=== PATIENT | male | born 1930 | race Caucasian/White ===

== ENCOUNTER 2016-09-06 14:45 | Emergency (ER) | payer OTHER, MEDICARE ==
[~2016-09-06] VITALS: Ht 152.4 cm; Wt 49.0 kg
[~2016-09-06 14:45] MED LIST: AMOXICILLIN875 MG PO; AVODART0.5 MG PO; COREG3.125 MG PO; DUONEB 2.5-0.5 M3 ML AEROSOL; FINASTERIDE5 MG PO; INHALER PO; LEVAQUIN750 MG PO; METAMUCIL PACKE1 PKT PO; PANTOPRAZOLE SO40 MG PO; PLAVIX75 MG PO; PREDNISONE20 MG PO; QUETIAPINE FUMA25 MG PO; SERTRALINE HCL50 MG PO; SIMVASTATIN40 MG PO; ST. JOSEPH ASPI81 MG PO; VICODIN,LORT1 TABLET PO; Zestril,Prinivil PO; Zocor PO
[2016-09-06 15:55] LABS: ADD MIUA? YES; BILIRUBIN NEGATIVE; BLOOD NEGATIVE; COLOR YELLOW ((YELLOW)); GLUCOSE (STRIP) NEGATIVE; KETONES 5; LEUKOCYTES SMALL; NITRITE NEGATIVE; PROTEIN (STRIP) NEGATIVE
[2016-09-06 15:57] LABS: BACTERIA NONE SEEN /HPF; CASTS NONE SEEN /LPF; CRYSTALS NONE SEEN; EPITHELIAL CELLS RARE /HPF; MUCUS TRACE /LPF; UCUL ADDED? NO; WHITE BLOOD CELLS 0-5 /HPF (0-5)
[2016-09-06] MEDS ORDERED: SKELAXIN800 MG PO (18:41)
[2016-09-06] MEDS ORDERED: ULTRAM50 MG PO (18:41)
[2016-09-06 19:16] VITALS: BP 132/60
== END 2016-09-06 19:17 | disposition home or self-care (01) ==
LOC: EME → EDBD 14:45 → EME 19:17
PROVIDERS: Emergency Medicine
DX: S22.32XA Fracture of one rib, left side, initial encounter for closed fracture (principal); S22.009A Unspecified fracture of unspecified thoracic vertebra, initial encounter for closed fracture; W18.30XA Fall on same level, unspecified, initial encounter; I10 Essential (primary) hypertension; E78.5 Hyperlipidemia, unspecified; Z95.0 Presence of cardiac pacemaker; Z87.891 Personal history of nicotine dependence; Z79.82 Long term (current) use of aspirin
CPT/HCPCS: 71111; 72100; 72170; 81003; 99281; 99284

== ENCOUNTER 2016-09-07 21:55 | Inpatient (IN) | payer OTHER, MEDICARE ==
[~2016-09-07] VITALS: Ht 167.6 cm; Wt 34.8 kg
[~2016-09-07 21:55] MED LIST changes: +SKELAXIN800 MG PO; +ULTRAM50 MG PO
[2016-09-07 22:42] LABS: EOSINOPHIL (%) 0.3 % (0-5); HEMATOCRIT 38.8 % (38.0-50.0); IMMATURE GRANULOCYTE (%) 0.5 % (0.0-0.7); IMMATURE GRANULOCYTE COUNT 0.6 K/uL; LYMPHOCYTE COUNT 1.3 K/uL (1.0-2.8); MCH 30.3 PG (29.0-34.0); MCHC 32.2 G/DL (30.0-36.0); MCV 93.9 FL (86-99); MEAN PLAT.VOLUME 9.2 uM^3 (9.0-12.4); MONOCYTE (%) 9.4 % (3-12); MONOCYTE COUNT 1.1 K/uL (0-0.8); NEUTROPHIL (%) 79.2 % (45-76); NEUTROPHIL COUNT 9.5 K/uL (1.8-6.4); PLATELET COUNT 297 K/uL (156-360); RBC DIS.WIDTH-CV 15.7 % (11.8-14.6); RBC DIS.WIDTH-SD 51.4 % (39-53); RED BLOOD COUNT 4.13 M/uL (4.00-5.50)
[2016-09-07 22:51] LABS: CHLORIDE 106 mEq/L (99-109); POTASSIUM 4.6 mEq/L (3.7-5.4); SODIUM 143 mEq/L (136-147)
[2016-09-07 22:54] LABS: GLUCOSE 106 mg/dL (70-99); INTER. NORMALIZED RATIO 1.2; PROTHROMBIN TIME 12.7 (9.2-11.2); PTT 32.9 (25-32)
[2016-09-07 22:55] LABS: ANION GAP 12 MEQ/L (2-14); TOTAL BILIRUBIN 0.8 mg/dL (0.0-1.0)
[2016-09-07 22:57] LABS: ALKALINE PHOSPHATASE 60 IU/L (3-129); GFR ESTIMATE (CALCULATED) 56 mL/min/
[2016-09-07 22:58] LABS: UREA NITROGEN (BUN) 38 mg/dL (9-23)
[2016-09-07 23:01] LABS: LIPASE 8 U/L (1.0-51.0)
[2016-09-07 23:03] LABS: TROP-I INTERPRETATION NEGATIVE; TROPONIN-I 0.04 ng/mL (0.0-0.30)
[2016-09-08] MEDS ORDERED: COREG3.125 M1 PO (01:36)
[2016-09-08] MEDS ORDERED: MELOXICAM7.5 MG PO (01:40)
[2016-09-08 04:42] LABS: ADD MIUA? YES; BILIRUBIN NEGATIVE; BLOOD NEGATIVE; COLOR YELLOW ((YELLOW)); GLUCOSE (STRIP) NEGATIVE; KETONES 20; LEUKOCYTES TRACE; NITRITE NEGATIVE; PROTEIN (STRIP) NEGATIVE
[2016-09-08 04:46] LABS: BACTERIA NONE SEEN /HPF; EPITHELIAL CELLS NONE SEEN /HPF; HYALINE CASTS 15-20 /LPF; MUCUS 1+ /LPF; RED BLOOD CELLS 0-5 /HPF (0-5); UCUL ADDED? NO; WHITE BLOOD CELLS 0-5 /HPF (0-5)
[2016-09-08 08:16] VITALS: BP 123/58
[2016-09-08 12:15] VITALS: BP 131/68
[2016-09-08 16:00] VITALS: BP 147/50
[2016-09-08 20:49] VITALS: BP 117/58
[2016-09-08 23:38] VITALS: BP 144/65
[2016-09-09 05:32] LABS: HEMATOCRIT 34.7 % (38.0-50.0); MCH 30.3 PG (29.0-34.0); MCHC 31.7 G/DL (30.0-36.0); MCV 95.6 FL (86-99); MEAN PLAT.VOLUME 9.3 uM^3 (9.0-12.4); PLATELET COUNT 251 K/uL (156-360); RBC DIS.WIDTH-CV 15.6 % (11.8-14.6); RBC DIS.WIDTH-SD 52.1 % (39-53); RED BLOOD COUNT 3.63 M/uL (4.00-5.50)
[2016-09-09 05:36] LABS: WHITE BLOOD COUNT 8.1 K/uL (4.1-10.2)
[2016-09-09 05:37] LABS: CHLORIDE 110 mEq/L (99-109); POTASSIUM 4.5 mEq/L (3.7-5.4); SODIUM 141 mEq/L (136-147)
[2016-09-09 05:39] LABS: GLUCOSE 86 mg/dL (70-99)
[2016-09-09 05:41] LABS: TOTAL BILIRUBIN 0.7 mg/dL (0.0-1.0)
[2016-09-09 05:43] LABS: ALKALINE PHOSPHATASE 48 IU/L (3-129); GFR ESTIMATE (CALCULATED) > 59 mL/min/
[2016-09-09 05:44] LABS: UREA NITROGEN (BUN) 18 mg/dL (9-23)
[2016-09-09 06:18] LABS: ANION GAP 8 MEQ/L (2-14)
[2016-09-09 07:21] VITALS: BP 125/60
[2016-09-09 15:16] VITALS: BP 102/53
[2016-09-10 00:04] VITALS: BP 106/56
[2016-09-10 08:30] VITALS: BP 135/56
[2016-09-10 15:29] VITALS: BP 110/58
[2016-09-10 23:41] VITALS: BP 111/51
[2016-09-11 08:04] VITALS: BP 105/51
[2016-09-11 16:10] VITALS: BP 118/58
[2016-09-11 23:27] VITALS: BP 145/79
[2016-09-12 07:28] VITALS: BP 98/50
[2016-09-12 10:53] LABS: ALKALINE PHOSPHATASE 50 IU/L (3-129); ANION GAP 7 MEQ/L (2-14); CHLORIDE 107 MEQ/L (99-109); GFR ESTIMATE (CALCULATED) > 59 mL/min/; GLUCOSE 116 mg/dL (70-99); POTASSIUM 4.2 MEQ/L (3.7-5.4); SAMPLE HEMOLYSIS CHECK 0; SAMPLE ICTERIC CHECK 0; SAMPLE LIPEMIA CHECK 0; SODIUM 143 MEQ/L (136-147); TOTAL BILIRUBIN 0.5 MG/DL (0.0-1.0); UREA NITROGEN (BUN) 18 mg/dL (9-23)
[2016-09-12 11:12] LABS: HEMATOCRIT 36.6 % (38.0-50.0); MCH 31.2 PG (29.0-34.0); MCHC 32.2 G/DL (30.0-36.0); MCV 96.8 FL (86-99); PLATELET COUNT 308 K/uL (156-360); RBC DIS.WIDTH-CV 16.1 % (11.8-14.6); RBC DIS.WIDTH-SD 56.6 % (39-53); RED BLOOD COUNT 3.78 M/uL (4.00-5.50)
[2016-09-12 11:19] LABS: WHITE BLOOD COUNT 10.7 K/uL (4.1-10.2)
[2016-09-12 15:08] VITALS: BP 112/59
[2016-09-12 22:00] VITALS: BP 124/60
[2016-09-12 23:07] VITALS: BP 145/65
[2016-09-13 09:08] VITALS: BP 126/62
[2016-09-13 15:15] VITALS: BP 137/61
[2016-09-13 20:49] VITALS: BP 130/60
[2016-09-14] VITALS: BP 143/66
[2016-09-14 00:33] VITALS: BP 143/66
[2016-09-14 04:00] VITALS: BP 117/51
[2016-09-14 07:36] VITALS: BP 116/68
[2016-09-14 08:08] LABS: ANION GAP 4 MEQ/L (2-14); CHLORIDE 109 MEQ/L (99-109); GFR ESTIMATE (CALCULATED) > 59 mL/min/; SAMPLE HEMOLYSIS CHECK 0; SAMPLE ICTERIC CHECK 0; SAMPLE LIPEMIA CHECK 0; SODIUM 141 MEQ/L (136-147); UREA NITROGEN (BUN) 16 mg/dL (9-23)
[2016-09-14 08:09] LABS: GLUCOSE 82 mg/dL (70-99); POTASSIUM 5.1 MEQ/L (3.7-5.4)
[2016-09-14 16:30] VITALS: BP 116/51
[2016-09-14 23:39] VITALS: BP 107/58
[2016-09-15 07:40] VITALS: BP 136/62
[2016-09-15 10:55] VITALS: BP 139/73
== END 2016-09-15 14:40 | DRG 515 ==
LOC: EME 21:55 → EDOF 09-08 02:34 → 5WEST 09-08 07:31 → 3EAST 09-08 13:11 → 5WEST 09-08 13:11 → 3EAST 09-08 20:34
PROVIDERS: Emergency Medicine; Internal Medicine
PROC: 0PU43JZ Supplement Thoracic Vertebra with Synthetic Substitute, Percutaneous Approach (ICD-10-PCS; principal; 2016-09-13)
DX: S22.079A Unspecified fracture of T9-T10 vertebra, initial encounter for closed fracture (principal); J96.01 Acute respiratory failure with hypoxia; I25.10 Atherosclerotic heart disease of native coronary artery without angina pectoris; F33.0 Major depressive disorder, recurrent, mild; E78.5 Hyperlipidemia, unspecified; I10 Essential (primary) hypertension; R29.6 Repeated falls; R53.1 Weakness; Z95.5 Presence of coronary angioplasty implant and graft; N40.0 Benign prostatic hyperplasia without lower urinary tract symptoms; Z95.810 Presence of automatic (implantable) cardiac defibrillator; I35.0 Nonrheumatic aortic (valve) stenosis; R53.83 Other fatigue; D72.829 Elevated white blood cell count, unspecified; R79.89 Other specified abnormal findings of blood chemistry; M54.9 Dorsalgia, unspecified; I49.9 Cardiac arrhythmia, unspecified; G89.29 Other chronic pain; J44.1 Chronic obstructive pulmonary disease with (acute) exacerbation; J20.9 Acute bronchitis, unspecified; E86.0 Dehydration; R41.82 Altered mental status, unspecified; J44.0 Chronic obstructive pulmonary disease with (acute) lower respiratory infection; S22.32XA Fracture of one rib, left side, initial encounter for closed fracture
CPT/HCPCS: 70450; 71010; 71250; 72125; 72128; 72131; 74176; 78306; 80048; 80053; 81003; 83605; 83690; 84484; 85025; 85027; 85610; 85730; 87040; 92523 GN; 92610 GN; 93005; 94640; 94667; 94668; 94799; 99202; 99281; 99285; A9503; J0330; J0690; J1644; J1956; J2405; J3010; J3480; J7030

== ENCOUNTER 2016-10-03 10:49 | Inpatient (IN) | payer OTHER, MEDICARE ==
[~2016-10-03] VITALS: Ht 167.6 cm; Wt 51.0 kg
[2016-10-03] VITALS (13 sets, daily range): BP systolic 96–154; BP diastolic 39–85
[~2016-10-03 10:49] MED LIST changes: +COREG3.125 M1 PO; +MELOXICAM7.5 MG PO
[2016-10-03 11:36] LABS: BASE EXCESS 9.9 mEq/L (-3 to +3); PCO2 53 mm Hg (35-45); PO2 301 mm Hg (80-100); pH 7.44 (7.35-7.45)
[2016-10-03 11:42] LABS: COMMENTS - BLOOD GASES A+C+; DEVICE NRBR; O2 FLOW 15 L/MIN; SITE LRA; TOTAL RESP RATE 18 resp/min
[2016-10-03 11:48] LABS: EOSINOPHIL COUNT 0.2 K/uL (0-0.3); HEMATOCRIT 17.6 % (38.0-50.0); IMMATURE GRANULOCYTE (%) 0.9 % (0.0-0.7); IMMATURE GRANULOCYTE COUNT 1.4 K/uL; LYMPHOCYTE COUNT 1.7 K/uL (1.0-2.8); MCH 29.2 PG (29.0-34.0); MCHC 29.5 G/DL (30.0-36.0); MCV 98.9 FL (86-99); MEAN PLAT.VOLUME 10.1 uM^3 (9.0-12.4); MONOCYTE (%) 9.4 % (3-12); MONOCYTE COUNT 1.5 K/uL (0-0.8); NEUTROPHIL (%) 77.6 % (45-76); PLATELET COUNT 331 K/uL (156-360); RBC DIS.WIDTH-CV 15.5 % (11.8-14.6); RED BLOOD COUNT 1.78 M/uL (4.00-5.50); WHITE BLOOD COUNT 15.5 K/uL (4.1-10.2)
[2016-10-03 11:50] LABS: INTER. NORMALIZED RATIO 1.2; PROTHROMBIN TIME 12.4 (9.2-11.2); PTT 24.1 (25-32)
[2016-10-03 11:51] LABS: CHLORIDE 107 mEq/L (99-109); POTASSIUM 5.2 mEq/L (3.7-5.4); SODIUM 145 mEq/L (136-147)
[2016-10-03 11:54] LABS: ANION GAP 7 MEQ/L (2-14)
[2016-10-03 11:55] LABS: GLUCOSE 117 mg/dL (70-99)
[2016-10-03 11:56] LABS: GFR ESTIMATE (CALCULATED) > 59 mL/min/
[2016-10-03 11:57] LABS: UREA NITROGEN (BUN) 61 mg/dL (9-23)
[2016-10-03 12:07] LABS: TROP-I INTERPRETATION NEGATIVE; TROPONIN-I 0.04 ng/mL (0.0-0.30)
[2016-10-03] MEDS ORDERED: BENGAY ULTRA S1 EACH TP (12:19)
[2016-10-03] MEDS ORDERED: COLACE100 MG PO (12:20)
[2016-10-03] MEDS ORDERED: LASIX40 MG PO (12:20)
[2016-10-03] MEDS ORDERED: KLOR-CON M2020 MEQ PO (12:21)
[2016-10-03] MEDS ORDERED: DUONEB 2.5-0.5 M3 ML AEROSOL (12:23)
[2016-10-03] MEDS ORDERED: DULCOLAX10 MG PR (12:26)
[2016-10-03] MEDS ORDERED: MILK OF MAGN PO (12:26)
[2016-10-03] MEDS ORDERED: FLEET ENEMA-AD118 ML PR (12:29)
[2016-10-03] MEDS ORDERED: ACETAMINOPHEN325 M1 PO (12:30)
[2016-10-03] MEDS ORDERED: IBUPROFEN600 MG PO (12:31)
[2016-10-04 02:05] LABS: HEMATOCRIT 24.7 % (38.0-50.0)
[2016-10-04 02:09] LABS: MCV 92.2 FL (86-99)
[2016-10-04 03:46] VITALS: BP 108/54
[2016-10-04 06:44] LABS: HEMATOCRIT 25.5 % (38.0-50.0); MCV 91.1 FL (86-99)
[2016-10-04 07:14] LABS: ANION GAP 7 MEQ/L (2-14); CHLORIDE 105 MEQ/L (99-109); GFR ESTIMATE (CALCULATED) > 59 mL/min/; GLUCOSE 93 mg/dL (70-99); POTASSIUM 4.5 MEQ/L (3.7-5.4); SAMPLE HEMOLYSIS CHECK 0; SAMPLE ICTERIC CHECK 0; SAMPLE LIPEMIA CHECK 0; SODIUM 146 MEQ/L (136-147); UREA NITROGEN (BUN) 60 mg/dL (9-23)
[2016-10-04 08:30] VITALS: BP 117/62
[2016-10-04 12:45] VITALS: BP 113/60
[2016-10-04 13:25] LABS: HEMATOCRIT 24.9 % (38.0-50.0); MCV 91.2 FL (86-99)
[2016-10-04 17:18] VITALS: BP 133/70
[2016-10-04 19:37] LABS: MCV 91.9 FL (86-99)
[2016-10-04 20:54] VITALS: BP 118/54
[2016-10-05] VITALS (10 sets, daily range): BP systolic 98–154; BP diastolic 52–68
[2016-10-05 07:01] LABS: EOSINOPHIL (%) 0.3 % (0-5); EOSINOPHIL COUNT 0.1 K/uL (0-0.3); HEMATOCRIT 22.7 % (38.0-50.0); IMMATURE GRANULOCYTE (%) 0.5 % (0.0-0.7); IMMATURE GRANULOCYTE COUNT 0.1 K/uL; LYMPHOCYTE COUNT 1.7 K/uL (1.0-2.8); MCH 30.2 PG (29.0-34.0); MCHC 32.2 G/DL (30.0-36.0); MCV 93.8 FL (86-99); MEAN PLAT.VOLUME 10.5 uM^3 (9.0-12.4); MONOCYTE (%) 9.1 % (3-12); MONOCYTE COUNT 1.8 K/uL (0-0.8); NEUTROPHIL (%) 81.7 % (45-76); NEUTROPHIL COUNT 16.3 K/uL (1.8-6.4); PLATELET COUNT 250 K/uL (156-360); RBC DIS.WIDTH-CV 16.4 % (11.8-14.6); RBC DIS.WIDTH-SD 55.3 % (39-53)
[2016-10-05 07:12] LABS: RED BLOOD COUNT 2.42 M/uL (4.00-5.50)
[2016-10-05 07:44] LABS: HEMATOLOGY COMMENT 1 SMEAR COMPATIBLE; USER ID CL
[2016-10-05 10:17] LABS: BASE EXCESS 9.1 mEq/L (-3 to +3); BICARBONATE 34.1 mEq/L (22-26); CARBOXY HGB 2.9 % (0-5); METHEMOGLOBIN 1.4 % (0-1.5); PCO2 49 mm Hg (35-45); pH 7.45 (7.35-7.45)
[2016-10-05 10:18] LABS: COMMENTS - BLOOD GASES A+C+; DEVICE NC; O2 FLOW 5 L/MIN; PO2 117 mm Hg (80-100); SITE LR
[2016-10-06 03:00] VITALS: BP 102/46
[2016-10-06 06:49] LABS: EOSINOPHIL (%) 1.5 % (0-5); EOSINOPHIL COUNT 0.2 K/uL (0-0.3); IMMATURE GRANULOCYTE (%) 0.5 % (0.0-0.7); IMMATURE GRANULOCYTE COUNT 0.1 K/uL; LYMPHOCYTE COUNT 1.3 K/uL (1.0-2.8); MCH 29.4 PG (29.0-34.0); MCHC 31.4 G/DL (30.0-36.0); MCV 93.6 FL (86-99); MEAN PLAT.VOLUME 10.5 uM^3 (9.0-12.4); MONOCYTE (%) 11.4 % (3-12); MONOCYTE COUNT 1.3 K/uL (0-0.8); NEUTROPHIL (%) 74.7 % (45-76); NEUTROPHIL COUNT 8.7 K/uL (1.8-6.4); PLATELET COUNT 204 K/uL (156-360); RBC DIS.WIDTH-CV 17.2 % (11.8-14.6); RBC DIS.WIDTH-SD 57.1 % (39-53)
[2016-10-06 06:51] LABS: RED BLOOD COUNT 2.99 M/uL (4.00-5.50); WHITE BLOOD COUNT 11.6 K/uL (4.1-10.2)
[2016-10-06 07:03] LABS: ANION GAP 7 MEQ/L (2-14); CHLORIDE 108 MEQ/L (99-109); GFR ESTIMATE (CALCULATED) > 59 mL/min/; GLUCOSE 83 mg/dL (70-99); POTASSIUM 4.2 MEQ/L (3.7-5.4); SAMPLE HEMOLYSIS CHECK 0; SAMPLE ICTERIC CHECK 0; SAMPLE LIPEMIA CHECK 0; SODIUM 147 MEQ/L (136-147); UREA NITROGEN (BUN) 37 mg/dL (9-23)
[2016-10-06 09:00] VITALS: BP 130/62
[2016-10-06 12:00] VITALS: BP 112/54
[2016-10-06 17:00] VITALS: BP 121/76; BP 85/45
[2016-10-06 18:45] VITALS: BP 106/51
[2016-10-06 23:50] VITALS: BP 133/87
[2016-10-07 03:30] VITALS: BP 104/51
[2016-10-07 08:00] VITALS: BP 135/62
[2016-10-07 13:00] VITALS: BP 114/54
[2016-10-07 19:17] VITALS: BP 128/61
[2016-10-07 23:06] VITALS: BP 125/75
[2016-10-08 04:46] VITALS: BP 132/59
[2016-10-08 08:30] VITALS: BP 122/65
[2016-10-08] MEDS ORDERED: PROTONIX40 MG PO (10:25)
[2016-10-08 11:30] VITALS: BP 111/54
== END 2016-10-08 15:13 | DRG 378 ==
LOC: EME 10:49 → 4EAST 14:15 → EDOF 14:15 → 4EAST 18:08
PROVIDERS: Emergency Medicine; Internal Medicine; Specialist
PROC: 30233N1 Transfusion of Nonautologous Red Blood Cells into Peripheral Vein, Percutaneous Approach (ICD-10-PCS; 2016-10-03)
PROC: 0DJ08ZZ Inspection of Upper Intestinal Tract, Via Natural or Artificial Opening Endoscopic (ICD-10-PCS; principal; 2016-10-04)
DX: K92.1 Melena (principal); K31.1 Adult hypertrophic pyloric stenosis; I50.30 Unspecified diastolic (congestive) heart failure; D62 Acute posthemorrhagic anemia; R09.02 Hypoxemia; R13.10 Dysphagia, unspecified; K27.9 Peptic ulcer, site unspecified, unspecified as acute or chronic, without hemorrhage or perforation; J44.9 Chronic obstructive pulmonary disease, unspecified; E78.5 Hyperlipidemia, unspecified; I10 Essential (primary) hypertension; I25.10 Atherosclerotic heart disease of native coronary artery without angina pectoris; N40.0 Benign prostatic hyperplasia without lower urinary tract symptoms; F32.9 Major depressive disorder, single episode, unspecified; G89.29 Other chronic pain; M54.9 Dorsalgia, unspecified; Z66 Do not resuscitate; Z51.5 Encounter for palliative care; Z95.810 Presence of automatic (implantable) cardiac defibrillator; Z95.5 Presence of coronary angioplasty implant and graft; Z79.82 Long term (current) use of aspirin; Z79.02 Long term (current) use of antithrombotics/antiplatelets; Z88.5 Allergy status to narcotic agent; Z87.891 Personal history of nicotine dependence
CPT/HCPCS: 36600; 71010; 74230; 80048; 80048 91; 82803; 83880; 84484; 85014; 85018; 85025; 85025 91; 85610; 85730; 86850; 86900; 86901; 86920; 92526 GN; 92610 GN; 92611 GN; 93005; 94799; 99202; 99281; 99285; C9113; J1940; J2060; P9016

== ENCOUNTER 2016-10-27 16:28 | Emergency (ER) | payer OTHER, MEDICARE ==
[~2016-10-27] VITALS: Ht 157.5 cm; Wt 49.1 kg
[~2016-10-27 16:28] MED LIST changes: +ACETAMINOPHEN325 M1 PO; +BENGAY ULTRA S1 EACH TP; +COLACE100 MG PO; +DULCOLAX10 MG PR; +FLEET ENEMA-AD118 ML PR; +IBUPROFEN600 MG PO; +KLOR-CON M2020 MEQ PO; +LASIX40 MG PO; +MILK OF MAGN PO; +PROTONIX40 MG PO
[2016-10-27 17:51] LABS: EOSINOPHIL (%) 2.6 % (0-5); EOSINOPHIL COUNT 0.3 K/uL (0-0.3); HEMATOCRIT 32.2 % (38.0-50.0); IMMATURE GRANULOCYTE (%) 0.4 % (0.0-0.7); INSTRUMENT ABS NEUTROPHIL CT 6.6 K/uL; LYMPHOCYTE COUNT 1.6 K/uL (1.0-2.8); MCH 27.8 PG (29.0-34.0); MCHC 29.5 G/DL (30.0-36.0); MCV 94.2 FL (86-99); MEAN PLAT.VOLUME 10.6 uM^3 (9.0-12.4); MONOCYTE (%) 11.4 % (3-12); MONOCYTE COUNT 1.1 K/uL (0-0.8); NEUTROPHIL (%) 68.3 % (45-76); NEUTROPHIL COUNT 6.6 K/uL (1.8-6.4); PLATELET COUNT 276 K/uL (156-360); RBC DIS.WIDTH-CV 15.3 % (11.8-14.6); RBC DIS.WIDTH-SD 53.3 % (39-53); RED BLOOD COUNT 3.42 M/uL (4.00-5.50); WHITE BLOOD COUNT 9.7 K/uL (4.1-10.2)
[2016-10-27 17:58] LABS: CHLORIDE 107 mEq/L (99-109); POTASSIUM 4.7 mEq/L (3.7-5.4); SODIUM 147 mEq/L (136-147)
[2016-10-27 18:00] LABS: GLUCOSE 96 mg/dL (70-99)
[2016-10-27 18:01] LABS: ANION GAP 7 MEQ/L (2-14)
[2016-10-27 18:02] LABS: TOTAL BILIRUBIN 0.5 mg/dL (0.0-1.0)
[2016-10-27 18:03] LABS: SERUM ETHYL ALCOHOL < 10 mg/dL
[2016-10-27 18:04] LABS: ALKALINE PHOSPHATASE 73 IU/L (3-129); GFR ESTIMATE (CALCULATED) 56 mL/min/
[2016-10-27 18:05] LABS: UREA NITROGEN (BUN) 27 mg/dL (9-23)
[2016-10-27 20:36] VITALS: BP 92/50
== END 2016-10-27 20:59 ==
LOC: EME 16:28
PROVIDERS: Emergency Medicine
DX: F33.2 Major depressive disorder, recurrent severe without psychotic features (principal); R45.851 Suicidal ideations; I10 Essential (primary) hypertension; E78.5 Hyperlipidemia, unspecified; Z95.0 Presence of cardiac pacemaker; Z87.891 Personal history of nicotine dependence
CPT/HCPCS: 71010; 80053; 85025; 90839; G0480

== ENCOUNTER 2016-10-28 17:10 | Emergency (ER) | payer OTHER, MEDICARE ==
[~2016-10-28] VITALS: Ht 167.6 cm; Wt 48.0 kg
[2016-10-28 17:48] LABS: HEMATOCRIT 34.7 % (38.0-50.0); MCHC 29.7 G/DL (30.0-36.0); MCV 94.3 FL (86-99); MEAN PLAT.VOLUME 10.4 uM^3 (9.0-12.4); PLATELET COUNT 264 K/uL (156-360); RBC DIS.WIDTH-CV 15.4 % (11.8-14.6); RBC DIS.WIDTH-SD 53.6 % (39-53); RED BLOOD COUNT 3.68 M/uL (4.00-5.50); WHITE BLOOD COUNT 9.7 K/uL (4.1-10.2)
[2016-10-28 18:01] LABS: CHLORIDE 106 mEq/L (99-109); POTASSIUM 4.7 mEq/L (3.7-5.4); SODIUM 148 mEq/L (136-147)
[2016-10-28 18:02] LABS: GLUCOSE 97 mg/dL (70-99)
[2016-10-28 18:04] LABS: ANION GAP 8 MEQ/L (2-14)
[2016-10-28 18:06] LABS: GFR ESTIMATE (CALCULATED) 51 mL/min/; SERUM ETHYL ALCOHOL < 10 mg/dL
[2016-10-28 18:07] LABS: UREA NITROGEN (BUN) 29 mg/dL (9-23)
[2016-10-28 20:33] VITALS: BP 99/48
== END 2016-10-28 20:35 ==
LOC: EME 17:10
PROVIDERS: Emergency Medicine
DX: F33.2 Major depressive disorder, recurrent severe without psychotic features (principal); F43.21 Adjustment disorder with depressed mood; I10 Essential (primary) hypertension; E78.5 Hyperlipidemia, unspecified; Z95.0 Presence of cardiac pacemaker; Z87.891 Personal history of nicotine dependence
CPT/HCPCS: 80048; 85027; 90837; 99281; 99285; G0480